=== PATIENT | male | born 1970 | race Caucasian/White ===

== ENCOUNTER 2022-11-14 10:32 | Emergency (ER) | payer BC ==
[2022-11-14] MEDS ORDERED: Sodium Chloride 0.9% 10 ML Syringe FLUSH PRN (10:47)
[2022-11-14] MEDS ORDERED: Diltiazem 25 MG/5 ML SDV IVPUSH ONE (11:07)
[2022-11-14 11:39] LABS: ESTIMATED GFR 65 mL/min (>60)
[2022-11-14] MEDS ORDERED: Metoprolol Tartrate 5 MG/5 ML SDV IVPUSH ONE ×3 (11:50→15:15)
[2022-11-14] MEDS ORDERED: Metoprolol Tartrate 50 MG Tab PO ONE (13:17)
[2022-11-14 19:39] VITALS: BP 102/74; PULSE 96
== END 2022-11-14 16:30 | disposition home or self-care (01) ==
LOC: FB.ED 10:32
DX: I48.91 Unspecified atrial fibrillation (principal); I50.9 Heart failure, unspecified
CPT/HCPCS: 36415; 71045; 80053; 83880; 84443; 84484; 85025; 85610; 85730; 93005; 96374; 96375; 96376; 99285-25; A9270-GY; J3490